=== PATIENT | male | born 1990 | race Caucasian/White ===

== ENCOUNTER 2016-12-02 16:46 | Emergency (ER) | payer MEDICARE, OTHER ==
[~2016-12-02] VITALS: Ht 180.3 cm; Wt 75.0 kg
[~2016-12-02 16:46] MED LIST: BENZ0.5T6 PO; FLUP1 PO; FLUP10 PO; LURA40 PO; LURA80 PO; VENL-68 PO
[2016-12-02 18:08] LABS: BASOPHILS % (AUTO) 0.4 % (0.0-2.0); HEMOGLOBIN 15.1 g/dL (13.5-17.5); LYMPHOCYTES # (AUTO) 2.2 K/uL (1.0-4.8); LYMPHOCYTES % (AUTO) 25.2 % (22.0-44.0); MEAN CORPUSCULAR HEMOGLOBIN 29.5 pg (26.0-34.0); MEAN CORPUSCULAR HGB CONC 34.3 G/dL (31.0-37.0); MEAN CORPUSCULAR VOLUME 86 fL (80-100); MONOCYTES # (AUTO) 0.7 K/uL (0.1-1.0); MONOCYTES % (AUTO) 8.3 % (2.0-9.0); NEUTROPHILS # (AUTO) 5.7 K/uL (1.8-7.7); NEUTROPHILS % (AUTO) 64.1 % (40.0-70.0); PLATELET COUNT (AUTO) 284 K/uL (150-450); RED BLOOD CELL COUNT(AUTO) 5.11 MIL/uL (4.50-5.90); RED CELL DISTRIBUTION WIDTH 14.2 % (11.5-14.5); WHITE BLOOD COUNT (AUTO) 8.9 K/uL (4.5-11.0)
[2016-12-02 18:19] LABS: ANION GAP 10 mmol/L (8-16); CALCIUM, TOTAL 9.1 mg/dL (8.8-10.5); CARBON DIOXIDE 28 mmol/L (22-29); CHLORIDE 104 mmol/L (98-107); CREATININE 0.93 mg/dL (0.60-1.30); GLOMERULAR FILTR. RATE CALC > 60 mL/min (>60); POTASSIUM 3.7 mmol/L (3.5-5.1); SODIUM SERUM 142 mmol/L (136-145); UREA NITROGEN, BLOOD 9 mg/dL (7-18)
[2016-12-02 18:40] LABS: ALANINE AMINOTRANSFERASE 19 U/L (12-78); ALBUMIN 3.8 g/dL (3.4-5.0); ASPARTATE AMINOTRANSFERASE 18 U/L (15-37); BILIRUBIN,TOTAL 0.2 mg/dL (0.1-1.0); TOTAL PROTEIN, SERUM 7.5 g/dL (6.4-8.2)
[2016-12-02 20:49] VITALS: BP 137/75
== END 2016-12-02 20:57 | disposition home or self-care (01) ==
LOC: EMS 16:48
DX: F25.9 Schizoaffective disorder, unspecified (principal); F12.10 Cannabis abuse, uncomplicated; I10 Essential (primary) hypertension; F17.210 Nicotine dependence, cigarettes, uncomplicated; Z88.0 Allergy status to penicillin
CPT/HCPCS: 36415; 80053; 80307; 85025; 99285; G0480

== ENCOUNTER 2016-12-20 13:01 | Emergency (ER) | payer MEDICARE, OTHER ==
[~2016-12-20] VITALS: Ht 175.3 cm; Wt 72.7 kg
[2016-12-20] MEDS ORDERED: DiphenhydrAMINE HCL 50 MG/ML VIAL ONE (13:06)
[2016-12-20] MEDS ORDERED: LORazepam 2 MG/ML VIAL ONE (13:06)
[2016-12-20] MEDS ORDERED: HALOPERIDOL LACTATE 5 MG/ML VIAL ONE (13:07)
[2016-12-20] MEDS ORDERED: DiphenhydrAMINE HCL 50 MG/ML VIAL IM ONE ×2 (13:15→13:30)
[2016-12-20] MEDS ORDERED: LORazepam 2 MG/ML VIAL IM ONE ×2 (13:15→13:30)
[2016-12-20] MEDS ORDERED: HALOPERIDOL LACTATE 5 MG/ML VIAL IM ONE ×2 (13:15→13:30)
[2016-12-20 13:36] LABS: BASOPHILS % (AUTO) 0.6 % (0.0-2.0); EOSINOPHILS % (AUTO) 2.3 % (1.0-6.0); HEMATOCRIT 43.5 % (41-53); HEMOGLOBIN 14.9 g/dL (13.5-17.5); LYMPHOCYTES # (AUTO) 2.6 K/uL (1.0-4.8); LYMPHOCYTES % (AUTO) 28.2 % (22.0-44.0); MEAN CORPUSCULAR HEMOGLOBIN 29.6 pg (26.0-34.0); MEAN CORPUSCULAR HGB CONC 34.3 G/dL (31.0-37.0); MEAN CORPUSCULAR VOLUME 86 fL (80-100); MONOCYTES # (AUTO) 1.1 K/uL (0.1-1.0); MONOCYTES % (AUTO) 11.5 % (2.0-9.0); NEUTROPHILS # (AUTO) 5.3 K/uL (1.8-7.7); NEUTROPHILS % (AUTO) 57.4 % (40.0-70.0); PLATELET COUNT (AUTO) 262 K/uL (150-450); RED BLOOD CELL COUNT(AUTO) 5.05 MIL/uL (4.50-5.90); RED CELL DISTRIBUTION WIDTH 14.5 % (11.5-14.5); WHITE BLOOD COUNT (AUTO) 9.3 K/uL (4.5-11.0)
[2016-12-20 13:45] LABS: ANION GAP 13 mmol/L (8-16); CALCIUM, TOTAL 9.4 mg/dL (8.8-10.5); CARBON DIOXIDE 23 mmol/L (22-29); CHLORIDE 100 mmol/L (98-107); CREATININE 0.86 mg/dL (0.60-1.30); GLOMERULAR FILTR. RATE CALC > 60 mL/min (>60); POTASSIUM 3.5 mmol/L (3.5-5.1); SODIUM SERUM 136 mmol/L (136-145); UREA NITROGEN, BLOOD 5 mg/dL (7-18)
[2016-12-20 13:52] LABS: ALANINE AMINOTRANSFERASE 20 U/L (12-78); ALBUMIN 3.8 g/dL (3.4-5.0); ASPARTATE AMINOTRANSFERASE 27 U/L (15-37); BILIRUBIN,TOTAL 0.4 mg/dL (0.1-1.0); TOTAL PROTEIN, SERUM 7.5 g/dL (6.4-8.2)
[2016-12-20 16:09] VITALS: BP 109/69
== END 2016-12-20 18:07 | disposition home or self-care (01) ==
LOC: EEVIPCON 13:05 → EMS 13:05
DX: F29 Unspecified psychosis not due to a substance or known physiological condition (principal); F11.10 Opioid abuse, uncomplicated; F20.9 Schizophrenia, unspecified; I10 Essential (primary) hypertension; F19.90 Other psychoactive substance use, unspecified, uncomplicated; F12.90 Cannabis use, unspecified, uncomplicated; F17.210 Nicotine dependence, cigarettes, uncomplicated; Z88.0 Allergy status to penicillin
CPT/HCPCS: 36415; 51702; 80053; 80307; 85025; 96372; 99285; G0480; J1200; J1630; J2060

== ENCOUNTER 2016-12-21 16:16 | Inpatient (IN) | payer MEDICARE, MEDICAID ==
[~2016-12-21] VITALS: Ht 180.3 cm; Wt 80.7 kg
[2016-12-21 18:03] LABS: BASOPHILS % (AUTO) 0.4 % (0.0-2.0); EOSINOPHILS % (AUTO) 4.3 % (1.0-6.0); HEMATOCRIT 43.4 % (41-53); LYMPHOCYTES # (AUTO) 2.9 K/uL (1.0-4.8); LYMPHOCYTES % (AUTO) 25.2 % (22.0-44.0); MEAN CORPUSCULAR HGB CONC 34.7 G/dL (31.0-37.0); MEAN CORPUSCULAR VOLUME 86 fL (80-100); MONOCYTES # (AUTO) 0.9 K/uL (0.1-1.0); MONOCYTES % (AUTO) 7.6 % (2.0-9.0); NEUTROPHILS # (AUTO) 7.3 K/uL (1.8-7.7); NEUTROPHILS % (AUTO) 62.5 % (40.0-70.0); PLATELET COUNT (AUTO) 272 K/uL (150-450); RED BLOOD CELL COUNT(AUTO) 5.02 MIL/uL (4.50-5.90); RED CELL DISTRIBUTION WIDTH 15.1 % (11.5-14.5); WHITE BLOOD COUNT (AUTO) 11.7 K/uL (4.5-11.0)
[2016-12-21 18:17] LABS: ANION GAP 11 mmol/L (8-16); CALCIUM, TOTAL 9.2 mg/dL (8.8-10.5); CARBON DIOXIDE 25 mmol/L (22-29); CHLORIDE 105 mmol/L (98-107); CREATININE 0.88 mg/dL (0.60-1.30); GLOMERULAR FILTR. RATE CALC > 60 mL/min (>60); POTASSIUM 4.2 mmol/L (3.5-5.1); SODIUM SERUM 141 mmol/L (136-145); UREA NITROGEN, BLOOD 11 mg/dL (7-18)
[2016-12-21 18:26] LABS: ALANINE AMINOTRANSFERASE 31 U/L (12-78); ALBUMIN 3.9 g/dL (3.4-5.0); ASPARTATE AMINOTRANSFERASE 54 U/L (15-37); BILIRUBIN,TOTAL 0.4 mg/dL (0.1-1.0); TOTAL PROTEIN, SERUM 7.8 g/dL (6.4-8.2)
[2016-12-21] MEDS ORDERED: HALOPERIDOL LACTATE 5 MG/ML VIAL IM ONE (20:45)
[2016-12-21] MEDS ORDERED: LORazepam 2 MG/ML VIAL IM ONE (20:45)
[2016-12-21] MEDS ORDERED: DiphenhydrAMINE HCL 50 MG/ML VIAL IM ONE (20:45)
[2016-12-22] MEDS: ZOLPIDEM TARTRATE 10 MG TABLET PO PRN ×2 (00:20→23:39)
[2016-12-22] MEDS: LORazepam 2 MG TABLET PO PRN ×4 (00:20→23:39)
[2016-12-22] MEDS: OLANZapine 5 MG RAPDIS TABLET PO PRN ×2 (00:20→09:52)
[2016-12-22 01:11] VITALS: BP 135/78
[2016-12-22 08:06] VITALS: BP 143/87
[2016-12-22] MEDS ORDERED: MAGNESIUM HYDROXIDE SUSPENSION 30 ML UDCUP PO PRN (11:00)
[2016-12-22] MEDS ORDERED: MAG HYDROX/AL HYDROX/SIMETH ES 30 ML SUSPENSION UDCUP PO PRN (11:00)
[2016-12-22] MEDS ORDERED: CYANOCOBALAMIN 1,000 MCG/ML VIAL IM ONE (11:00)
[2016-12-22] MEDS ORDERED: GuaiFENesin/D-METHORPHAN [SUGAR-FREE] 200-20MG/10 ML SYRUP UDCUP PO PRN (11:00)
[2016-12-22] MEDS ORDERED: LOPERAMIDE HCL 2 MG CAPSULE PO PRN (11:00)
[2016-12-22] MEDS ORDERED: ACETAMINOPHEN 325 MG TABLET PO PRN (11:00)
[2016-12-22] MEDS ORDERED: PROMETHAZINE HCL 25 MG TABLET PO PRN (11:00)
[2016-12-22] MEDS ORDERED: TUBERCULIN, PURIFIED PROTEIN DERIVATIVE 5 TU/0.1 ML SYG ID ONE (11:00)
[2016-12-22] MEDS: NICOTINE 21 MG/24 HOUR PATCH TD SCH (13:40)
[2016-12-22 16:00] VITALS: BP 120/70
[2016-12-22] MEDS: THIAMINE HCL 100 MG TABLET PO SCH (16:55)
[2016-12-22] MEDS ORDERED: PALIPERIDONE PALMITATE 234 MG/1.5 ML SYRINGE IM ONE (18:45)
[2016-12-22] MEDS ORDERED: OLANZapine 5 MG RAPDIS TABLET PO SCH (21:00)
[2016-12-22] MEDS ORDERED: PALIPERIDONE 3 MG ER TABLET PO SCH (21:00)
[2016-12-23 00:10] VITALS: BP 137/71
[2016-12-23] MEDS ORDERED: DiphenhydrAMINE HCL 50 MG/ML VIAL ONE (07:15)
[2016-12-23] MEDS ORDERED: DiphenhydrAMINE HCL 50 MG/ML VIAL IM ONE (07:15)
[2016-12-23] MEDS ORDERED: HALOPERIDOL LACTATE 5 MG/ML VIAL IM ONE (07:15)
[2016-12-23] MEDS ORDERED: LORazepam 2 MG/ML VIAL ONE (07:15)
[2016-12-23] MEDS ORDERED: LORazepam 2 MG/ML VIAL IM ONE (07:15)
[2016-12-23] MEDS ORDERED: HALOPERIDOL LACTATE 5 MG/ML VIAL ONE (07:16)
[2016-12-23 08:25] VITALS: BP 137/75
[2016-12-23] MEDS ORDERED: ALBUTEROL SULFATE HFA 90 MCG/PUFF 8 GM INHALER IH PRN (08:30)
[2016-12-23] MEDS: MULTIVITAMINS WITH MINERALS, THERAPEUTIC TABLET PO SCH (09:54)
[2016-12-23] MEDS: THIAMINE HCL 100 MG TABLET PO SCH ×2 (09:54→16:48)
[2016-12-23] MEDS: NALTREXONE HCL 50 MG TABLET PO SCH (09:54)
[2016-12-23] MEDS: FOLIC ACID 1 MG TABLET PO SCH (09:54)
[2016-12-23] MEDS: NICOTINE 21 MG/24 HOUR PATCH TD SCH (09:55)
[2016-12-23] MEDS: LORazepam 2 MG TABLET PO PRN (13:42)
[2016-12-23 16:00] VITALS: BP 124/86
[2016-12-23] MEDS: PALIPERIDONE 3 MG ER TABLET PO PRN (16:48)
[2016-12-23] MEDS: HydrOXYzine PAMOATE 50 MG CAPSULE PO PRN (16:48)
[2016-12-24 08:00] VITALS: BP 129/83
[2016-12-24] MEDS: NICOTINE 21 MG/24 HOUR PATCH TD SCH (08:59)
[2016-12-24] MEDS: LORazepam 2 MG TABLET PO PRN ×3 (09:00→21:57)
[2016-12-24] MEDS: THIAMINE HCL 100 MG TABLET PO SCH ×2 (09:00→16:11)
[2016-12-24] MEDS: FOLIC ACID 1 MG TABLET PO SCH (09:00)
[2016-12-24] MEDS: PALIPERIDONE 3 MG ER TABLET PO PRN ×2 (09:00→16:11)
[2016-12-24] MEDS: NALTREXONE HCL 50 MG TABLET PO SCH (09:00)
[2016-12-24] MEDS: MULTIVITAMINS WITH MINERALS, THERAPEUTIC TABLET PO SCH (09:00)
[2016-12-24 16:00] VITALS: BP 135/82
[2016-12-24] MEDS: HydrOXYzine PAMOATE 50 MG CAPSULE PO PRN (16:11)
[2016-12-24] MEDS: ZOLPIDEM TARTRATE 10 MG TABLET PO PRN (21:58)
[2016-12-25 06:31] VITALS: BP 129/79
[2016-12-25] MEDS: NALTREXONE HCL 50 MG TABLET PO SCH (08:13)
[2016-12-25] MEDS: MULTIVITAMINS WITH MINERALS, THERAPEUTIC TABLET PO SCH (08:13)
[2016-12-25] MEDS: NICOTINE 21 MG/24 HOUR PATCH TD SCH (08:13)
[2016-12-25] MEDS: THIAMINE HCL 100 MG TABLET PO SCH ×2 (08:13→16:39)
[2016-12-25] MEDS: FOLIC ACID 1 MG TABLET PO SCH (08:13)
[2016-12-25] MEDS: LORazepam 2 MG TABLET PO PRN ×2 (08:13→16:39)
[2016-12-25 08:37] VITALS: BP 121/69
[2016-12-25 09:53] LABS: HEMOGLOBIN A1C 5.3 % (4.5-6.2)
[2016-12-25 09:59] LABS: CREATINE KINASE MB 0.5 ng/mL (0-5); CREATINE KINASE, TOTAL 134 U/L (39-308)
[2016-12-25 16:00] VITALS: BP 118/87
[2016-12-25] MEDS: HydrOXYzine PAMOATE 50 MG CAPSULE PO PRN (16:40)
[2016-12-26 06:42] VITALS: BP 131/79
[2016-12-26] MEDS ORDERED: DiphenhydrAMINE HCL 50 MG/ML VIAL ONE (07:54)
[2016-12-26] MEDS ORDERED: HALOPERIDOL LACTATE 5 MG/ML VIAL ONE (07:54)
[2016-12-26] MEDS ORDERED: LORazepam 2 MG/ML VIAL ONE (07:54)
[2016-12-26 07:55] LABS: HEPATITIS Bs ANTIGEN SCREEN P Negative (Negative); HEPATITIS C AB SCREEN <0.1 s/co ratio (0.0-0.9)
[2016-12-26] MEDS ORDERED: LORazepam 2 MG/ML VIAL IM ONE (08:00)
[2016-12-26] MEDS ORDERED: HALOPERIDOL LACTATE 5 MG/ML VIAL IM ONE (08:00)
[2016-12-26] MEDS ORDERED: DiphenhydrAMINE HCL 50 MG/ML VIAL IM ONE (08:00)
[2016-12-26 08:34] VITALS: BP 118/60
[2016-12-26] MEDS ORDERED: PALIPERIDONE PALMITATE 156 MG/ML SYRINGE IM ONE (09:00)
[2016-12-26] MEDS: NICOTINE 21 MG/24 HOUR PATCH TD SCH (09:00)
[2016-12-26] MEDS: FOLIC ACID 1 MG TABLET PO SCH (09:25)
[2016-12-26] MEDS: THIAMINE HCL 100 MG TABLET PO SCH ×2 (09:25→16:40)
[2016-12-26] MEDS: MULTIVITAMINS WITH MINERALS, THERAPEUTIC TABLET PO SCH (09:25)
[2016-12-26] MEDS: NALTREXONE HCL 50 MG TABLET PO SCH (09:25)
[2016-12-26] MEDS: LORazepam 2 MG TABLET PO PRN ×2 (10:25→16:40)
[2016-12-26 16:26] VITALS: BP 127/76
[2016-12-26] MEDS: ZOLPIDEM TARTRATE 10 MG TABLET PO PRN (20:11)
[2016-12-27 06:37] VITALS: BP 135/62
[2016-12-27] MEDS: NICOTINE 21 MG/24 HOUR PATCH TD SCH (09:00)
[2016-12-27] MEDS: THIAMINE HCL 100 MG TABLET PO SCH ×2 (09:21→16:32)
[2016-12-27] MEDS: NALTREXONE HCL 50 MG TABLET PO SCH (09:21)
[2016-12-27] MEDS: MULTIVITAMINS WITH MINERALS, THERAPEUTIC TABLET PO SCH (09:21)
[2016-12-27] MEDS: FOLIC ACID 1 MG TABLET PO SCH (09:21)
[2016-12-27] MEDS: LORazepam 2 MG TABLET PO PRN ×2 (09:21→16:32)
[2016-12-27 09:34] VITALS: BP 125/77
[2016-12-27 16:18] VITALS: BP 122/78
[2016-12-27] MEDS: ZOLPIDEM TARTRATE 10 MG TABLET PO PRN (20:07)
[2016-12-28 01:18] VITALS: BP 135/89
[2016-12-28 08:30] VITALS: BP 135/76
[2016-12-28] MEDS: MULTIVITAMINS WITH MINERALS, THERAPEUTIC TABLET PO SCH (09:01)
[2016-12-28] MEDS: NALTREXONE HCL 50 MG TABLET PO SCH (09:01)
[2016-12-28] MEDS: NICOTINE 21 MG/24 HOUR PATCH TD SCH (09:01)
[2016-12-28] MEDS: LORazepam 2 MG TABLET PO PRN ×2 (09:01→17:03)
[2016-12-28] MEDS: FOLIC ACID 1 MG TABLET PO SCH (09:01)
[2016-12-28] MEDS: THIAMINE HCL 100 MG TABLET PO SCH ×2 (09:01→17:03)
[2016-12-28 16:07] VITALS: BP 138/83
[2016-12-28] MEDS: DIVALPROEX SODIUM 500 MG ER TABLET PO SCH (20:37)
[2016-12-28] MEDS: PALIPERIDONE 3 MG ER TABLET PO SCH (20:37)
[2016-12-29 04:26] VITALS: BP 132/75
[2016-12-29] MEDS: THIAMINE HCL 100 MG TABLET PO SCH ×2 (08:22→16:09)
[2016-12-29] MEDS: NALTREXONE HCL 50 MG TABLET PO SCH (08:22)
[2016-12-29] MEDS: LORazepam 2 MG TABLET PO PRN ×2 (08:22→16:09)
[2016-12-29] MEDS: FOLIC ACID 1 MG TABLET PO SCH (08:22)
[2016-12-29] MEDS: MULTIVITAMINS WITH MINERALS, THERAPEUTIC TABLET PO SCH (08:22)
[2016-12-29] MEDS: NICOTINE 21 MG/24 HOUR PATCH TD SCH (08:23)
[2016-12-29] MEDS: PALIPERIDONE 3 MG ER TABLET PO PRN (08:25)
[2016-12-29 08:39] VITALS: BP 109/62
[2016-12-29 16:00] VITALS: BP 118/72
[2016-12-29] MEDS: DIVALPROEX SODIUM 500 MG ER TABLET PO SCH (20:18)
[2016-12-29] MEDS: PALIPERIDONE 3 MG ER TABLET PO SCH (20:18)
[2016-12-29] MEDS: ZOLPIDEM TARTRATE 10 MG TABLET PO PRN (22:20)
[2016-12-30] MEDS: LORazepam 2 MG TABLET PO PRN ×2 (06:23→16:51)
[2016-12-30 06:35] VITALS: BP 147/81
[2016-12-30 08:14] VITALS: BP 113/62
[2016-12-30 08:32] LABS: BASOPHILS % (AUTO) 0.8 % (0.0-2.0); EOSINOPHILS % (AUTO) 4.1 % (1.0-6.0); HEMATOCRIT 40.1 % (41-53); HEMOGLOBIN 13.7 g/dL (13.5-17.5); LYMPHOCYTES # (AUTO) 2.1 K/uL (1.0-4.8); LYMPHOCYTES % (AUTO) 33.2 % (22.0-44.0); MEAN CORPUSCULAR HEMOGLOBIN 29.8 pg (26.0-34.0); MEAN CORPUSCULAR HGB CONC 34.3 G/dL (31.0-37.0); MEAN CORPUSCULAR VOLUME 87 fL (80-100); MONOCYTES # (AUTO) 0.5 K/uL (0.1-1.0); MONOCYTES % (AUTO) 7.5 % (2.0-9.0); NEUTROPHILS # (AUTO) 3.5 K/uL (1.8-7.7); NEUTROPHILS % (AUTO) 54.4 % (40.0-70.0); PLATELET COUNT (AUTO) 222 K/uL (150-450); RED BLOOD CELL COUNT(AUTO) 4.61 MIL/uL (4.50-5.90); RED CELL DISTRIBUTION WIDTH 14.3 % (11.5-14.5); WHITE BLOOD COUNT (AUTO) 6.4 K/uL (4.5-11.0)
[2016-12-30] MEDS: MULTIVITAMINS WITH MINERALS, THERAPEUTIC TABLET PO SCH (08:51)
[2016-12-30] MEDS: THIAMINE HCL 100 MG TABLET PO SCH ×2 (08:51→16:51)
[2016-12-30] MEDS: NALTREXONE HCL 50 MG TABLET PO SCH (08:51)
[2016-12-30] MEDS: FOLIC ACID 1 MG TABLET PO SCH (08:52)
[2016-12-30] MEDS: NICOTINE 21 MG/24 HOUR PATCH TD SCH (08:55)
[2016-12-30 09:12] LABS: ALANINE AMINOTRANSFERASE 19 U/L (12-78); ALBUMIN 3.4 g/dL (3.4-5.0); ANION GAP 8 mmol/L (8-16); ASPARTATE AMINOTRANSFERASE 16 U/L (15-37); BILIRUBIN,TOTAL 0.2 mg/dL (0.1-1.0); CALCIUM, TOTAL 8.4 mg/dL (8.8-10.5); CARBON DIOXIDE 27 mmol/L (22-29); CHLORIDE 104 mmol/L (98-107); CREATINE KINASE, TOTAL 39 U/L (39-308); CREATININE 0.78 mg/dL (0.60-1.30); GLOMERULAR FILTR. RATE CALC > 60 mL/min (>60); POTASSIUM 3.8 mmol/L (3.5-5.1); SODIUM SERUM 139 mmol/L (136-145); TOTAL PROTEIN, SERUM 6.8 g/dL (6.4-8.2); UREA NITROGEN, BLOOD 8 mg/dL (7-18); VALPROIC ACID 69 mcg/mL (50-100)
[2016-12-30] MEDS: MAGNESIUM OXIDE 400 MG TABLET PO SCH (13:25)
[2016-12-30 16:00] VITALS: BP 124/72
[2016-12-30] MEDS: DIVALPROEX SODIUM 500 MG ER TABLET PO SCH (20:20)
[2016-12-30] MEDS: PALIPERIDONE 3 MG ER TABLET PO SCH (20:21)
[2016-12-30] MEDS: ZOLPIDEM TARTRATE 10 MG TABLET PO PRN (22:22)
[2016-12-31 00:23] VITALS: BP 107/61
[2016-12-31 08:18] VITALS: BP 116/65
[2016-12-31] MEDS: NALTREXONE HCL 50 MG TABLET PO SCH (09:13)
[2016-12-31] MEDS: FOLIC ACID 1 MG TABLET PO SCH (09:13)
[2016-12-31] MEDS: NICOTINE 21 MG/24 HOUR PATCH TD SCH (09:13)
[2016-12-31] MEDS: MAGNESIUM OXIDE 400 MG TABLET PO SCH (09:14)
[2016-12-31] MEDS: THIAMINE HCL 100 MG TABLET PO SCH ×2 (09:14→16:42)
[2016-12-31] MEDS: MULTIVITAMINS WITH MINERALS, THERAPEUTIC TABLET PO SCH (09:14)
[2016-12-31] MEDS: LORazepam 2 MG TABLET PO PRN ×3 (09:15→17:41)
[2016-12-31] MEDS: PALIPERIDONE 3 MG ER TABLET PO PRN (13:00)
[2016-12-31 16:11] VITALS: BP 114/68
[2016-12-31] MEDS: PALIPERIDONE 3 MG ER TABLET PO SCH (20:10)
[2016-12-31] MEDS: DIVALPROEX SODIUM 500 MG ER TABLET PO SCH (20:10)
[2016-12-31] MEDS ORDERED: TUBERCULIN, PURIFIED PROTEIN DERIVATIVE 5 TU/0.1 ML SYG ID ONE (21:30)
[2017-01-01 07:22] VITALS: BP 111/70
[2017-01-01] MEDS: LORazepam 2 MG TABLET PO PRN ×2 (08:51→16:54)
[2017-01-01] MEDS: NICOTINE 21 MG/24 HOUR PATCH TD SCH (08:51)
[2017-01-01] MEDS: THIAMINE HCL 100 MG TABLET PO SCH (08:52)
[2017-01-01] MEDS: MAGNESIUM OXIDE 400 MG TABLET PO SCH (08:52)
[2017-01-01] MEDS: FOLIC ACID 1 MG TABLET PO SCH (08:52)
[2017-01-01] MEDS: NALTREXONE HCL 50 MG TABLET PO SCH (08:52)
[2017-01-01] MEDS: MULTIVITAMINS WITH MINERALS, THERAPEUTIC TABLET PO SCH (08:52)
[2017-01-01] MEDS: PALIPERIDONE 3 MG ER TABLET PO SCH ×2 (08:53→20:22)
[2017-01-01] MEDS ORDERED: PALIPERIDONE 3 MG ER TABLET PO SCH (09:00)
[2017-01-01 10:57] VITALS: BP 123/68
[2017-01-01 16:28] VITALS: BP 126/72
[2017-01-01] MEDS: PALIPERIDONE 3 MG ER TABLET PO PRN (16:54)
[2017-01-01] MEDS: DIVALPROEX SODIUM 500 MG ER TABLET PO SCH (20:22)
[2017-01-01] MEDS: ZOLPIDEM TARTRATE 10 MG TABLET PO PRN (20:22)
[2017-01-02 06:26] VITALS: BP 118/78
[2017-01-02 08:19] VITALS: BP 116/68
[2017-01-02] MEDS: NALTREXONE HCL 50 MG TABLET PO SCH (08:56)
[2017-01-02] MEDS: MAGNESIUM OXIDE 400 MG TABLET PO SCH (08:56)
[2017-01-02] MEDS: MULTIVITAMINS WITH MINERALS, THERAPEUTIC TABLET PO SCH (08:56)
[2017-01-02] MEDS: LORazepam 2 MG TABLET PO PRN ×3 (08:56→21:28)
[2017-01-02] MEDS: PALIPERIDONE 3 MG ER TABLET PO SCH (08:56)
[2017-01-02] MEDS: NICOTINE 21 MG/24 HOUR PATCH TD SCH (08:57)
[2017-01-02 16:00] VITALS: BP 114/71
[2017-01-02] MEDS: PALIPERIDONE 3 MG ER TABLET PO PRN (16:30)
[2017-01-02] MEDS: DIVALPROEX SODIUM 500 MG ER TABLET PO SCH (20:19)
[2017-01-02] MEDS: ZOLPIDEM TARTRATE 10 MG TABLET PO PRN (21:28)
[2017-01-03 04:36] VITALS: BP 120/69
[2017-01-03 08:20] VITALS: BP 110/64
[2017-01-03] MEDS: NICOTINE 21 MG/24 HOUR PATCH TD SCH (08:45)
[2017-01-03] MEDS: PALIPERIDONE 3 MG ER TABLET PO SCH (08:46)
[2017-01-03] MEDS: MAGNESIUM OXIDE 400 MG TABLET PO SCH (08:46)
[2017-01-03] MEDS: NALTREXONE HCL 50 MG TABLET PO SCH (08:46)
[2017-01-03] MEDS: LORazepam 2 MG TABLET PO PRN ×2 (08:46→16:35)
[2017-01-03] MEDS: MULTIVITAMINS WITH MINERALS, THERAPEUTIC TABLET PO SCH (08:46)
[2017-01-03 16:00] VITALS: BP 112/67
[2017-01-03] MEDS: PALIPERIDONE 3 MG ER TABLET PO PRN (16:34)
[2017-01-03] MEDS: VENLAFAXINE HCL 75 MG ER CAPSULE PO SCH (17:21)
[2017-01-03] MEDS: DIVALPROEX SODIUM 500 MG ER TABLET PO SCH (20:24)
[2017-01-04 05:40] VITALS: BP 114/64
[2017-01-04 08:16] VITALS: BP 112/63
[2017-01-04] MEDS: PALIPERIDONE 3 MG ER TABLET PO SCH (09:04)
[2017-01-04] MEDS: MAGNESIUM OXIDE 400 MG TABLET PO SCH (09:04)
[2017-01-04] MEDS: VENLAFAXINE HCL 75 MG ER CAPSULE PO SCH (09:04)
[2017-01-04] MEDS: NALTREXONE HCL 50 MG TABLET PO SCH (09:04)
[2017-01-04] MEDS: MULTIVITAMINS WITH MINERALS, THERAPEUTIC TABLET PO SCH (09:04)
[2017-01-04] MEDS: NICOTINE 21 MG/24 HOUR PATCH TD SCH (09:05)
[2017-01-04] MEDS: LORazepam 2 MG TABLET PO PRN ×2 (09:09→16:07)
[2017-01-04 16:00] VITALS: BP 117/67
[2017-01-04] MEDS: PALIPERIDONE 3 MG ER TABLET PO PRN (16:07)
[2017-01-04] MEDS: DIVALPROEX SODIUM 500 MG ER TABLET PO SCH (20:47)
[2017-01-05 06:18] VITALS: BP 125/73
[2017-01-05 08:04] VITALS: BP 103/60
[2017-01-05] MEDS: MULTIVITAMINS WITH MINERALS, THERAPEUTIC TABLET PO SCH (09:36)
[2017-01-05] MEDS: MAGNESIUM OXIDE 400 MG TABLET PO SCH (09:37)
[2017-01-05] MEDS: LORazepam 2 MG TABLET PO PRN ×2 (09:37→17:18)
[2017-01-05] MEDS: PALIPERIDONE 3 MG ER TABLET PO SCH (09:37)
[2017-01-05] MEDS: NALTREXONE HCL 50 MG TABLET PO SCH (09:38)
[2017-01-05] MEDS: VENLAFAXINE HCL 150 MG ER CAPSULE PO SCH (09:38)
[2017-01-05] MEDS: NICOTINE 21 MG/24 HOUR PATCH TD SCH (09:38)
[2017-01-05 16:00] VITALS: BP 130/76
[2017-01-05] MEDS: PALIPERIDONE 3 MG ER TABLET PO PRN (17:18)
[2017-01-05] MEDS: ZOLPIDEM TARTRATE 10 MG TABLET PO PRN (21:17)
[2017-01-05] MEDS: DIVALPROEX SODIUM 500 MG ER TABLET PO SCH (21:17)
[2017-01-06 03:15] VITALS: BP 145/90
[2017-01-06 08:11] VITALS: BP 134/83
[2017-01-06] MEDS: PALIPERIDONE 3 MG ER TABLET PO SCH (09:00)
[2017-01-06] MEDS: MAGNESIUM OXIDE 400 MG TABLET PO SCH (09:00)
[2017-01-06] MEDS: NALTREXONE HCL 50 MG TABLET PO SCH (09:00)
[2017-01-06] MEDS: VENLAFAXINE HCL 150 MG ER CAPSULE PO SCH (09:00)
[2017-01-06] MEDS: MULTIVITAMINS WITH MINERALS, THERAPEUTIC TABLET PO SCH (09:00)
[2017-01-06] MEDS: NICOTINE 21 MG/24 HOUR PATCH TD SCH (09:01)
[2017-01-06 16:00] VITALS: BP 138/86
[2017-01-06] MEDS: LORazepam 2 MG TABLET PO PRN ×2 (16:23→20:36)
[2017-01-06] MEDS: PALIPERIDONE 3 MG ER TABLET PO PRN (16:23)
[2017-01-06] MEDS: ZOLPIDEM TARTRATE 10 MG TABLET PO PRN (20:36)
[2017-01-06] MEDS: DIVALPROEX SODIUM 500 MG ER TABLET PO SCH (20:36)
[2017-01-07 06:40] VITALS: BP 118/76
[2017-01-07 08:14] VITALS: BP 126/76
[2017-01-07] MEDS: VENLAFAXINE HCL 150 MG ER CAPSULE PO SCH (08:36)
[2017-01-07] MEDS: NICOTINE 21 MG/24 HOUR PATCH TD SCH (08:36)
[2017-01-07] MEDS: MAGNESIUM OXIDE 400 MG TABLET PO SCH (08:36)
[2017-01-07] MEDS: NALTREXONE HCL 50 MG TABLET PO SCH (08:36)
[2017-01-07] MEDS: PALIPERIDONE 3 MG ER TABLET PO SCH (08:37)
[2017-01-07] MEDS: LORazepam 2 MG TABLET PO PRN ×2 (08:37→16:10)
[2017-01-07] MEDS: MULTIVITAMINS WITH MINERALS, THERAPEUTIC TABLET PO SCH (08:37)
[2017-01-07] MEDS ORDERED: TUBERCULIN, PURIFIED PROTEIN DERIVATIVE 5 TU/0.1 ML SYG ID ONE (11:45)
[2017-01-07 16:00] VITALS: BP 138/83
[2017-01-07] MEDS: PALIPERIDONE 3 MG ER TABLET PO PRN (16:10)
[2017-01-07] MEDS ORDERED: VENL150C2 PO (16:33)
[2017-01-07] MEDS ORDERED: NALT50TA PO (16:33)
[2017-01-07] MEDS ORDERED: PALI3 PO (16:33)
[2017-01-07] MEDS ORDERED: DIVA500T52 PO (16:33)
== END 2017-01-07 18:35 | disposition home or self-care (01) | DRG 885 ==
LOC: EMS 16:19 → B3A 22:09
PROVIDERS: ADMIT Psychiatry & Neurology Psychiatry; ATTEND Psychiatry & Neurology Psychiatry
DX: F20.0 Paranoid schizophrenia (principal); E83.42 Hypomagnesemia; E11.9 Type 2 diabetes mellitus without complications; D72.829 Elevated white blood cell count, unspecified; I10 Essential (primary) hypertension; J45.909 Unspecified asthma, uncomplicated; Z72.0 Tobacco use; Z81.8 Family history of other mental and behavioral disorders; Z82.49 Family history of ischemic heart disease and other diseases of the circulatory system; Z88.0 Allergy status to penicillin; Z91.19 Patient's noncompliance with other medical treatment and regimen
CPT/HCPCS: 80074; 82306; 82607; 82746; 83036; 83735; 84443; 96372; 99285; 99406; G0480; J1200; J1630; J2060

== ENCOUNTER 2017-04-08 18:34 | Inpatient (IN) | payer MEDICARE, MEDICAID ==
[~2017-04-08] VITALS: Ht 185.4 cm; Wt 93.2 kg
[~2017-04-08 18:34] MED LIST changes: -BENZ0.5T6 PO; +DIVA500T52 PO; -FLUP1 PO; -FLUP10 PO; -LURA40 PO; -LURA80 PO; +NALT50TA PO; +PALI3 PO; -VENL-68 PO; +VENL150C2 PO
[2017-04-09] MEDS ORDERED: ZOLPIDEM TARTRATE 10 MG TABLET PO PRN (00:45)
[2017-04-09] MEDS ORDERED: HALOPERIDOL 5 MG TABLET PO PRN (00:45)
[2017-04-09 01:15] VITALS: BP 131/79
[2017-04-09] MEDS ORDERED: ONDANSETRON HCL 4 MG TABLET PO PRN (07:15)
[2017-04-09] MEDS ORDERED: MAG HYDROX/AL HYDROX/SIMETH ES 30 ML SUSPENSION UDCUP PO PRN (07:15)
[2017-04-09] MEDS ORDERED: ALBUTEROL SULFATE HFA 90 MCG/PUFF 8 GM INHALER IH PRN (07:15)
[2017-04-09] MEDS ORDERED: PETROLATUM,WHITE 71 GM JELLY TP PRN (07:15)
[2017-04-09] MEDS ORDERED: CloNIDine HCL 0.1 MG TABLET PO PRN (07:15)
[2017-04-09] MEDS ORDERED: ACETAMINOPHEN 325 MG TABLET PO PRN (07:15)
[2017-04-09] MEDS ORDERED: IBUPROFEN 600 MG TABLET PO PRN (07:15)
[2017-04-09] MEDS ORDERED: BENZOCAINE/MENTHOL LOZENGE MM PRN (07:15)
[2017-04-09] MEDS ORDERED: MAGNESIUM HYDROXIDE SUSPENSION 30 ML UDCUP PO PRN (07:15)
[2017-04-09] MEDS ORDERED: LOPERAMIDE HCL 2 MG CAPSULE PO PRN (07:15)
[2017-04-09] MEDS ORDERED: BACITRACIN 28.4 GM OINTMENT TP PRN (07:15)
[2017-04-09 08:30] VITALS: BP 117/65
[2017-04-09] MEDS ORDERED: PALI6 PO (13:38)
[2017-04-09] MEDS: DIVALPROEX SODIUM 500 MG ER TABLET PO SCH (20:18)
[2017-04-10 08:00] VITALS: BP 140/77
[2017-04-10 08:27] VITALS: BP 140/77
[2017-04-10] MEDS: LORazepam 2 MG TABLET PO PRN (09:20)
[2017-04-10] MEDS: VENLAFAXINE HCL 150 MG ER CAPSULE PO SCH (09:21)
[2017-04-10] MEDS: PALIPERIDONE 3 MG ER TABLET PO SCH (09:21)
[2017-04-10 16:00] VITALS: BP 133/75
[2017-04-10] MEDS: DIVALPROEX SODIUM 500 MG ER TABLET PO SCH (20:26)
[2017-04-11] MEDS: VENLAFAXINE HCL 150 MG ER CAPSULE PO SCH (08:13)
[2017-04-11] MEDS: PALIPERIDONE 3 MG ER TABLET PO SCH (08:13)
[2017-04-11 08:26] VITALS: BP 132/78
[2017-04-11 18:31] VITALS: BP 128/74
[2017-04-11] MEDS: DIVALPROEX SODIUM 500 MG ER TABLET PO SCH (20:22)
[2017-04-12 03:55] VITALS: BP 154/83
[2017-04-12 08:14] VITALS: BP 118/74
[2017-04-12] MEDS: PALIPERIDONE 3 MG ER TABLET PO SCH (09:01)
[2017-04-12] MEDS: VENLAFAXINE HCL 150 MG ER CAPSULE PO SCH (09:01)
[2017-04-12 17:15] VITALS: BP 136/73
[2017-04-12] MEDS: DIVALPROEX SODIUM 500 MG ER TABLET PO SCH (21:50)
[2017-04-13 07:24] LABS: HEMATOCRIT 41.2 % (41-53); HEMOGLOBIN 14.4 g/dL (13.5-17.5); MEAN CORPUSCULAR HEMOGLOBIN 30.3 pg (26.0-34.0); MEAN CORPUSCULAR HGB CONC 35.1 G/dL (31.0-37.0); MEAN CORPUSCULAR VOLUME 86 fL (80-100); PLATELET COUNT (AUTO) 226 K/uL (150-450); RED BLOOD CELL COUNT(AUTO) 4.77 MIL/uL (4.50-5.90); RED CELL DISTRIBUTION WIDTH 14.4 % (11.5-14.5)
[2017-04-13 07:52] LABS: ANION GAP 8 mmol/L (8-16); CALCIUM, TOTAL 8.8 mg/dL (8.8-10.5); CARBON DIOXIDE 28 mmol/L (22-29); CHLORIDE 101 mmol/L (98-107); CHOL/HDL RATIO 6.3 (4.2-7.3); CHOLESTEROL 203 mg/dL (131-200); GLOMERULAR FILTR. RATE CALC > 60 mL/min (>60); GLUCOSE,RANDOM 88 mg/dL (70-110); HDL CHOLESTEROL 32 mg/dL (40-60); LDL CHOL (CALC.) 147 mg/dL (0-130); PHOSPHORUS 4.4 mg/dL (2.5-4.9); SODIUM SERUM 137 mmol/L (136-145); TRIGLYCERIDES 122 mg/dL (15-150); UREA NITROGEN, BLOOD 11 mg/dL (7-18)
[2017-04-13] MEDS: VENLAFAXINE HCL 150 MG ER CAPSULE PO SCH (08:08)
[2017-04-13] MEDS: LORazepam 2 MG TABLET PO PRN (08:08)
[2017-04-13] MEDS: PALIPERIDONE 3 MG ER TABLET PO SCH (08:08)
[2017-04-13 09:09] VITALS: BP 147/80
[2017-04-13 11:34] LABS: EOSINOPHILS % (MANUAL) 1 % (1-6); LYMPHOCYTES % (MANUAL) 25 % (22-44); MONOCYTES % (MANUAL) 12 % (2-9); SEGMENTED NEUTROPHILS % 62 % (40-70)
[2017-04-13] MEDS ORDERED: VENL-68 PO (12:07)
[2017-04-13] MEDS ORDERED: DIVA500T52 PO (12:07)
== END 2017-04-13 14:15 | disposition home or self-care (01) | DRG 885 ==
LOC: 3EC 23:30
PROVIDERS: ADMIT Psychiatry & Neurology Child & Adolescent Psychiatry; ATTEND Psychiatry & Neurology Child & Adolescent Psychiatry
DX: F20.0 Paranoid schizophrenia (principal); R45.851 Suicidal ideations; F12.90 Cannabis use, unspecified, uncomplicated; F15.10 Other stimulant abuse, uncomplicated; F17.200 Nicotine dependence, unspecified, uncomplicated; G47.00 Insomnia, unspecified; J45.909 Unspecified asthma, uncomplicated; K59.00 Constipation, unspecified; Z71.6 Tobacco abuse counseling; Z79.899 Other long term (current) drug therapy; Z88.0 Allergy status to penicillin
CPT/HCPCS: 82306; 83735; 84100; 84443; 85007